=== PATIENT | female | born 2000 | race Two or more races ===

== ENCOUNTER 2023-10-01 15:54 | Emergency (ER) | payer SELFPAY ==
[~2023-10-01] VITALS: Ht 170.2 cm; Wt 77.5 kg
[2023-10-01 18:17] LABS: Eosinophils # (auto) 0 10 ^3/uL (0-0.8); Eosinophils % (auto) 0.2 % (0.0-7.0); Hemoglobin 11.2 g/dL (12.2-16.2); Mean Corpuscular Hemoglobin 25.4 pg (28.0-32.0); Red Blood Cells 4.42 10^6/uL (4.0-5.20); White Blood Cell 22.4 10^3/uL (4.4-10.8)
[2023-10-01 18:20] LABS: Basophils # (auto) 0.1 10 ^3/uL (0-0.2); Basophils % (auto) 0.2 % (0.0-2.0); Hematocrit 35.4 % (36.0-46.0); Lymphocytes # (auto) 1.8 10 ^3/uL (0.4-5.4); Lymphocytes % (auto) 7.9 % (10.0-50.0); Mean Corpuscular Hgb Conc. 31.6 g/dL (32.0-36.0); Mean Corpuscular Volume 80.2 fL (80.0-100.0); Monocytes # (auto) 0.8 10 ^3/uL (0-1.3); Monocytes % (auto) 3.7 % (0.0-12.0); Neutrophils # (auto) 19.7 10 ^3/uL (1.6-8.6); Red Cell Distribution Width 16.8 % (11.8-14.3)
[2023-10-01 18:24] LABS: Chloride 106 mmol/L (98-107); Potassium 4.3 mmol/L (3.5-5.1); Sodium 138 mmol/L (136-145)
[2023-10-01 18:25] LABS: Anion Gap 7 (5-15); Calcium 9.1 mg/dL (8.5-10.1); Carbon Dioxide 25 mmol/L (20-30)
[2023-10-01 18:30] LABS: BUN/Creatinine Ratio 29.5 (10.0-20.0); Blood Alcohol < 3.0 mg/dL (<10); Blood Urea Nitrogen 26 mg/dL (9-23); Glucose 102 mg/dL (74-106)
[2023-10-02] MEDS: SODIUM CHLORIDE 0.9% 1,000 ML IVB ONE (03:50)
[2023-10-02 09:07] VITALS: PULSE 95; RESP 14; TEMP 98.2; O2SAT 95
[2023-10-02 10:30] VITALS: BP 112/62; PULSE 88; RESP 16; O2SAT 96
== END 2023-10-02 12:15 | disposition left against medical advice (07) ==
LOC: EDBD 15:54 → ER 15:54
DX: T40.411A Poisoning by fentanyl or fentanyl analogs, accidental (unintentional), initial encounter (principal); R10.2 Pelvic and perineal pain; F20.9 Schizophrenia, unspecified; F41.9 Anxiety disorder, unspecified; F17.210 Nicotine dependence, cigarettes, uncomplicated; Y92.89 Other specified places as the place of occurrence of the external cause
CPT/HCPCS: 36415; 80048; 80320; 84702; 85025; 96360; 96361; 99283; J7030

== ENCOUNTER 2023-12-10 20:45 | Emergency (ER) | payer SELFPAY ==
[~2023-12-10] VITALS: Ht 167.6 cm; Wt 145.0 kg
[2023-12-10 20:45] VITALS: BP 164/100; RESP 28; O2SAT 96
[2023-12-10 20:50] VITALS: PULSE 107
== END 2023-12-11 05:40 | disposition left against medical advice (07) ==
LOC: ER 20:45 → EDBD 20:45 → ER 12-11 05:40
DX: T40.412A Poisoning by fentanyl or fentanyl analogs, intentional self-harm, initial encounter (principal); Z53.21 Procedure and treatment not carried out due to patient leaving prior to being seen by health care provider; Y92.89 Other specified places as the place of occurrence of the external cause
CPT/HCPCS: 93005